=== PATIENT | female | born 2000 | race Caucasian/White ===

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

== ENCOUNTER 2024-06-11 15:23 | Emergency (ER) | payer BC | END 2024-06-11 17:49 | disposition home or self-care (01) | LOC: ERS 15:23 | DX: T43.611A Poisoning by caffeine, accidental (unintentional), initial encounter (principal); F43.0 Acute stress reaction; R55 Syncope and collapse; Z79.899 Other long term (current) drug therapy | CPT/HCPCS: 36415; 84146; 93005; 99285 ==